=== PATIENT | male | born 1975 | race Two or more races ===

== ENCOUNTER 2021-12-09 10:50 | Outpatient (CLI) | payer OTHER | END 2021-12-09 11:01 | disposition home or self-care (01) | LOC: LAB 10:50 | PROVIDERS: ATTEND Surgery | DX: R97.20 Elevated prostate specific antigen [PSA] (principal) ==

== ENCOUNTER 2021-12-14 07:16 | Outpatient (CLI) | payer OTHER | END 2021-12-14 07:36 | disposition home or self-care (01) | LOC: SONOGRAMA 07:16 | PROVIDERS: ATTEND Surgery | DX: R97.20 Elevated prostate specific antigen [PSA] (principal) ==

== ENCOUNTER 2021-12-22 12:03 | Outpatient (CLI) | payer OTHER | END 2021-12-22 12:15 | disposition home or self-care (01) | LOC: SONOGRAMA 12:03 | PROVIDERS: ATTEND Surgery | DX: R31.0 Gross hematuria (principal) ==